=== PATIENT | male | born 1990 | race African-American/Black ===

== ENCOUNTER 2024-05-23 08:07 | Emergency (ER) | payer OTHER ==
[~2024-05-23] VITALS: Ht 170.2 cm; Wt 86.4 kg
[2024-05-23 08:16] VITALS: BP 140/84; PULSE 103; RESP 18; TEMP 98.6
[2024-05-23] MEDS: IBUPROFEN 600 MG TABLET PO ONE (08:29)
[2024-05-23] MEDS ORDERED: ACET-3385 PO (08:40)
[2024-05-23] MEDS ORDERED: IBUP-1492 PO (08:40)
== END 2024-05-23 08:50 | disposition home or self-care (01) ==
LOC: EMS 08:07
DX: S43.52XA Sprain of left acromioclavicular joint, initial encounter (principal); X58.XXXA Exposure to other specified factors, initial encounter; Y93.89 Activity, other specified; Y92.89 Other specified places as the place of occurrence of the external cause; Y99.8 Other external cause status
CPT/HCPCS: 99283